=== PATIENT | female | born 1945 | race Caucasian/White ===

== ENCOUNTER 2022-07-30 11:08 | Day surgery (SDC) | payer MEDICARE, BC ==
[2022-07-30] MEDS ORDERED: Propofol 200 MG/20 ML SDV ONE (11:29)
[2022-07-30] MEDS ORDERED: Lactated Ringers 1,000 ML IV SCH (11:45)
[2022-07-30 13:39] LABS: CARBON DIOXIDE,CO2 26.1 mmol/L (21.0-32.0); POTASSIUM,K 4.1 mmol/L (3.5-5.1)
== END 2022-07-30 13:35 | disposition home or self-care (01) ==
LOC: MW.SDS 11:08
PROVIDERS: ATTEND Surgery
DX: Z12.11 Encounter for screening for malignant neoplasm of colon (principal); D12.4 Benign neoplasm of descending colon; K57.30 Diverticulosis of large intestine without perforation or abscess without bleeding; E11.40 Type 2 diabetes mellitus with diabetic neuropathy, unspecified; E03.9 Hypothyroidism, unspecified; E78.00 Pure hypercholesterolemia, unspecified; E66.9 Obesity, unspecified; Z79.899 Other long term (current) drug therapy; Z79.84 Long term (current) use of oral hypoglycemic drugs; Z88.8 Allergy status to other drugs, medicaments and biological substances; Z86.010 Personal history of colon polyps; Z68.31 Body mass index [BMI] 31.0-31.9, adult; Z98.890 Other specified postprocedural states; Z79.890 Hormone replacement therapy
CPT/HCPCS: 36415; 45380; 80053; 82378; 85027; 88305; 88341; 88342; J2704; J7120; 00812; 45381; 45385; 99100

== ENCOUNTER 2023-10-12 09:00 | Day surgery (SDC) | payer MEDICARE, BC ==
[~2023-10-12 09:00] MED LIST: Sodium Chloride 0.9% 10 ML Syringe FLUSH PRN; Sodium Chloride 0.9% 2.5 ML Syringe FLUSH PRN; Sodium Chloride 0.9% 20 ML SDV IV PRN
[2023-10-12] MEDS ORDERED: propofoL 50 ML ONE (09:40)
[2023-10-12] MEDS: Lactated Ringers 1,000 ML IV SCH (09:58)
[2023-10-12] MEDS ORDERED: Lidocaine 2% 5 ML SDV ONE (11:19)
== END 2023-10-12 11:58 | disposition home or self-care (01) ==
LOC: MW.SDS 09:00
PROVIDERS: ATTEND Surgery
DX: Z12.11 Encounter for screening for malignant neoplasm of colon (principal); D12.2 Benign neoplasm of ascending colon; K51.40 Inflammatory polyps of colon without complications; K57.30 Diverticulosis of large intestine without perforation or abscess without bleeding; E11.9 Type 2 diabetes mellitus without complications; E78.00 Pure hypercholesterolemia, unspecified; E03.9 Hypothyroidism, unspecified; Z79.890 Hormone replacement therapy; Z79.84 Long term (current) use of oral hypoglycemic drugs; Z79.899 Other long term (current) drug therapy
CPT/HCPCS: 45380; 88305; J2704; J7120; 00811; 99100; J3490